=== PATIENT | female | born 1980 | race Caucasian/White ===

== ENCOUNTER 2018-04-20 05:55 | Observation (INO) | payer OTHER, MEDICAID ==
[2018-04-20] MEDS ORDERED: SOD CHLORIDE 0.9% 1,000 ML IV (06:30)
[2018-04-20] MEDS: CEFAZOLIN 2 GM/50 ML (PMX) 50 ML IVPB (06:34)
[2018-04-20] MEDS: LACTATED RINGER'S 1,000 ML IV (06:46)
[2018-04-20] MEDS: BUPIVACAINE 0.25% (MPF) 30 ML INJ (06:47)
[2018-04-20] MEDS: POLYMYXIN/BACITRACIN 1L IRRIG (06:47)
[2018-04-20] MEDS ORDERED: LACTATED RINGER'S 1,000 ML IV (07:00)
[2018-04-20] MEDS ORDERED: CEFAZOLIN 1 GM INJ (07:05)
[2018-04-20] MEDS ORDERED: DEXAMETHASONE 4 MG/ML 1 ML INJ (07:05)
[2018-04-20] MEDS ORDERED: FENTAnyl 50 MCG/ML VIAL (07:05)
[2018-04-20] MEDS ORDERED: GLYCOPYRROLATE 0.4 MG INJ (07:05)
[2018-04-20] MEDS ORDERED: ROCURONIUM 50 MG INJ (07:05)
[2018-04-20] MEDS ORDERED: NEOSTIGMINE 3 MG/3 ML SYRINGE (07:05)
[2018-04-20] MEDS ORDERED: PROPOFOL 20 ML (07:05)
[2018-04-20] MEDS ORDERED: ONDANSETRON 4 MG INJ (07:05)
[2018-04-20] MEDS ORDERED: MIDAZOLAM 1 MG/ML 2 ML INJ (07:05)
[2018-04-20] MEDS ORDERED: LABETALOL HCL 20MG INJ (07:32)
[2018-04-20] MEDS ORDERED: ALBUTEROL 0.083% (NEB) 2.5 MG/3 ML AMP HHN (08:00)
[2018-04-20] MEDS ORDERED: FENTAnyl 50 MCG/ML VIAL IV ×3 (08:00)
[2018-04-20] MEDS ORDERED: LABETALOL HCL 20MG INJ IV (08:00)
[2018-04-20] MEDS ORDERED: IPRATROPIUM (NEB) 0.5 MG/2.5 ML AMP HHN (08:00)
[2018-04-20] MEDS ORDERED: TRIMETHOBENZAMIDE 100 MG/ML VIAL IM (08:00)
[2018-04-20] MEDS ORDERED: HYDROmorphONE 1 MG/5 ML IV SYRINGE IV ×2 (08:00)
[2018-04-20] MEDS ORDERED: EPHEDrine SULFATE 50 MG/5 ML SYG IV (08:00)
[2018-04-20] MEDS ORDERED: MEPERIDINE 25 MG INJ IV (08:00)
[2018-04-20] MEDS ORDERED: hydrALAzine 20 MG INJ IV (08:00)
[2018-04-20] MEDS ORDERED: OXYCODONE/ACETAMINOPHEN (5/325) TAB PO ×2 (08:00→09:00)
[2018-04-20] MEDS ORDERED: MIDAZOLAM 1 MG/ML 2 ML INJ IV (08:00)
[2018-04-20] MEDS ORDERED: SUGAMMADEX SODIUM 200 MG/2 ML VIAL IV (08:23)
[2018-04-20] MEDS ORDERED: ONDANSETRON 4 MG INJ IV (09:00)
[2018-04-20] MEDS: HYDROmorphONE 1 MG/5 ML IV SYRINGE IV ×2 (09:12→09:24)
[2018-04-20] MEDS: ONDANSETRON 4 MG INJ IV (09:12)
[2018-04-20] MEDS: DIPHENHYDRAMINE 50 MG INJ IV (09:27)
[2018-04-20] MEDS: OXYCODONE/ACETAMINOPHEN (5/325) TAB PO ×3 (11:57→22:53)
[2018-04-20] MEDS: CALCIUM CARBONATE 500 MG CHEW TAB PO (22:52)
[2018-04-20] MEDS: DEXTROSE 5%-0.9% NACL 1,000 ML IV (23:02)
[2018-04-21 05:44] LABS: ADD MAN DIFF? NO
[2018-04-21 05:52] LABS: WHITE BLOOD COUNT 15.8 10^3/ul (4.8-10.8)
[2018-04-21 05:52] LABS: BASOPHILS % 0.2 % (0.0-2.0); HEMOGLOBIN 11.6 g/dl (12.0-16.0); LYMPHOCYTES # 1.3 10^3/ul (0.8-2.9); LYMPHOCYTES % 8.2 % (15.0-51.0); MEAN CORPUSCULAR HEMOGLOBIN 30.4 pg (29.0-33.0); MEAN CORPUSCULAR HGB CONC 34.1 g/dl (32.0-37.0); MEAN PLATELET VOLUME 9.7 fl (7.4-10.4); MONOCYTE # 0.6 10^3/ul (0.3-0.9); MONOCYTES % 3.6 % (0.0-11.0); NEUTROPHIL # 13.9 10^3/ul (1.6-7.5); NEUTROPHILS % 87.6 % (39.0-77.0); PLATELET COUNT 245 10^3/UL (140-415); RED BLOOD COUNT 3.82 10^6/ul (4.20-5.40)
[2018-04-21 06:44] LABS: ANION GAP 14 (8-16); BLOOD UREA NITROGEN 13 mg/dl (7-20); CALCIUM 9.6 mg/dl (8.4-10.2); CARBON DIOXIDE 26 mmol/L (21-31); CHLORIDE 102 mmol/L (97-110); CREATININE 0.75 mg/dl (0.44-1.00); GLUCOSE 110 mg/dl (70-220); POTASSIUM 4.2 mmol/L (3.5-5.1); SODIUM 138 mmol/L (135-144)
[2018-04-21] MEDS ORDERED: BETHANECHOL 25 MG TAB PO (08:00)
[2018-04-21] MEDS: OXYCODONE/ACETAMINOPHEN (5/325) TAB PO ×3 (08:22→16:53)
[2018-04-21] MEDS: CALCIUM CARBONATE 500 MG CHEW TAB PO (08:22)
== END 2018-04-21 17:30 | disposition home or self-care (01) ==
LOC: SUR 05:55 → SDS 05:55 → MS1 17:40 → SUR 22:07 → MS1 22:08
PROVIDERS: Orthopaedic Surgery
DX: M51.26 Other intervertebral disc displacement, lumbar region (principal)
CPT/HCPCS: 63030; 72020; 80048; 84703; 85025; 86850; 86900; 86901; 86920; 97116; 97161; 97530